=== PATIENT | male | born 1965 | race Caucasian/White ===

== ENCOUNTER → 2018-12-20 | Outpatient (CLI) | payer OTHER ==
[~2018-12-20] MED LIST: ALBU8.5H8 INH; ASPI81TA52 PO; ATOR20TA65 PO; DOCU-144 PO; ENOX40DI2 SC; FAMO20TA18 PO; IOHEXOL 100 ML ONE; IPRA3AMP29 HHN; METOPROLOL 100 MG TAB ONE; METOPROLOL 100 MG TAB PO ONE; MOR2I IV; NITROGLYCERIN AEROSOL (4.9 GM) ONE; ONDA4VIA6 IV; OXYC-481 PO; SOD CHLORIDE 0.9% 100 ML ONE
== END | disposition home or self-care (01) ==
LOC: C/S 09:07
PROVIDERS: ATTEND Internal Medicine
DX: R94.39 Abnormal result of other cardiovascular function study (principal); R07.9 Chest pain, unspecified
CPT/HCPCS: 75571; 75574; Q9967; Z7610